=== PATIENT | female | born 1980 | race Caucasian/White ===

== ENCOUNTER 2022-07-22 10:59 | Emergency (ER) | payer OTHER ==
[2022-07-22] MEDS ORDERED: Ketorolac 30 MG/ML SDV IM ONE (12:00)
[2022-07-22] MEDS ORDERED: Methocarbamol 500 MG Tab PO ONE (12:00)
[2022-07-22] MEDS ORDERED: Acetaminophen 500 MG Tab PO ONE (12:01)
== END 2022-07-22 12:17 | disposition home or self-care (01) ==
LOC: KA.ED 10:59
DX: S13.4XXA Sprain of ligaments of cervical spine, initial encounter (principal); M25.511 Pain in right shoulder; V43.62XA Car passenger injured in collision with other type car in traffic accident, initial encounter; Y92.411 Interstate highway as the place of occurrence of the external cause
CPT/HCPCS: 72040; 73030-RT; 96372; 99284; A9270-GY; J1885